=== PATIENT | female | born 1995 | race Caucasian/White ===

== ENCOUNTER 2016-11-29 20:56 | Emergency (ER) | payer MEDICAID ==
--- NOTE | 2016-11-29 21:08 | EDM.PDOC ---
ED HPI GENERAL MEDICAL PROBLEM - General Stated Complaint: BAD HEADACHE Time Seen by Provider: 11/29/16 21:08 Source of Information: Reports: Patient History Limitations: Reports: No Limitations - History of Present Illness INITIAL COMMENTS - FREE TEXT/NARRATIVE: 20 yo F who presented to the ER with severe throbbing temporal headache which she rates as 7/10 and associated with nausea, vomiting and photophobia but no fever. PARISH radiates down her neck but she denied any neck stiffness. Vomited prior to arrival but continues to feel nauseous. 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 - Infectious Disease History Infectious Disease History: Reports: Chicken Pox Social & Family History - Tobacco Use Smoking Status *Q: Never Smoker - Recreational Drug Use Recreational Drug Use: No ED ROS GENERAL - Review of Systems Review Of Systems: See Below Constitutional: Reports: Other (Positive for headache) HEENT: Reports: No Symptoms Respiratory: Reports: No Symptoms Cardiovascular: Reports: No Symptoms Endocrine: Reports: No Symptoms GI/Abdominal: Reports: No Symptoms Musculoskeletal: Reports: No Symptoms Skin: Reports: No Symptoms Neurological: Reports: No Symptoms Psychiatric: Reports: No Symptoms Hematologic/Lymphatic: Reports: No Symptoms Immunologic: Reports: No Symptoms ED EXAM, GENERAL - Physical Exam Exam: See Below Exam Limited By: No Limitations General Appearance: Alert, WD/WN, No Apparent Distress Ears: Normal External Exam, Normal Canal Nose: Normal Inspection Throat/Mouth: Normal Inspection, Normal Lips, Normal Oropharynx, Normal Voice Head: Atraumatic, Normocephalic Neck: Normal Inspection, Supple, Non-Tender Respiratory/Chest: No Respiratory Distress, Lungs Clear, Normal Breath Sounds Cardiovascular: Normal Peripheral Pulses, Regular Rate, Rhythm, No Edema GI/Abdominal: Normal Bowel Sounds, Soft, Non-Tender, No Organomegaly, No Distention (Female) Exam: Deferred Rectal (Female) Exam: Deferred Back Exam: Normal Inspection, Full Range of Motion Extremities: Normal Inspection, Normal Range of Motion Neurological: Alert, Oriented, CN II-XII Intact, Normal Cognition, Normal Reflexes Psychiatric: Normal Affect Skin Exam: Warm, Dry, Intact, Normal Color Course - Vital Signs Last Recorded V/S: Last Vital Signs Temp 36.0 C 11/29/16 21:11 Pulse 87 11/29/16 21:11 Resp 14 11/29/16 21:11 BP 140/65 11/29/16 21:11 Pulse Ox 100 11/29/16 21:11 - Orders/Labs/Meds Orders: Active Orders 24 hr Category Date Time Status Saline Lock Insert [OM.PC] Routine Oth 11/29/16 22:12 Ordered Meds: Medications Discontinued Medications Generic Name Dose Route Start Last Admin Trade Name Freq PRN Reason Stop Dose Admin Diphenhydramine HCl 25 mg 11/29/16 21:23 11/29/16 22:03 Benadryl IVPUSH 11/29/16 21:24 25 mg ONETIME ONE Administration Sodium Chloride 1,000 mls @ 1,000 mls/hr 11/29/16 21:18 11/29/16 21:52 Normal Saline IV 11/29/16 22:17 999 mls/hr .BOLUS ONE Administration Ketorolac Tromethamine 30 mg 11/29/16 21:22 11/29/16 22:00 Toradol IVPUSH 11/29/16 21:23 30 mg ONETIME ONE Administration Metoclopramide HCl 10 mg 11/29/16 21:21 11/29/16 21:58 Reglan IVPUSH 11/29/16 21:22 10 mg ONETIME ONE Administration Sodium Chloride 10 ml 11/29/16 22:12 11/29/16 22:13 Saline Flush FLUSH 10 ml ASDIRECTED PRN Administration Keep Vein Open Departure - Departure Time of Disposition: 22:50 Disposition: Home, Self-Care 01 Condition: Good Clinical Impression: Migraine - Discharge Information Instructions: Migraine Headache Referrals: PCP,None [Primary Care Provider] - Forms: ED Department Discharge Additional Instructions: Follow with PCP Ibuprofen for pain Return if symptoms worsen Call your Physician or Return to Emergency Department if: * Your condition worsens in any way. * You develop fever greater than 100.4. * You have vomitting that does not stop with medications. * You have pain that is not controlled with medications. - My Orders Last 24 Hours: My Active Orders 11/29/16 22:12 Saline Lock Insert [OM.PC] Routine - Assessment/Plan Last 24 Hours: My Active Orders 11/29/16 22:12 Saline Lock Insert [OM.PC] Routine
[2016-11-29] MEDS ORDERED: Sodium Chloride 0.9% 1,000 ML IV ONE (21:18)
[2016-11-29] MEDS ORDERED: Metoclopramide 10 MG/2 ML SDV IVPUSH ONE (21:21)
[2016-11-29 21:22] VITALS: BP 140/65
[2016-11-29] MEDS ORDERED: Ketorolac 30 MG/ML SDV IVPUSH ONE (21:22)
[2016-11-29] MEDS ORDERED: diphenhydrAMINE 50 MG/ML SDV IVPUSH ONE (21:23)
[2016-11-29] MEDS ORDERED: Sodium Chloride 0.9% 10 ML Syringe FLUSH PRN (22:12)
== END 2016-11-29 22:32 | disposition home or self-care (01) ==
LOC: FB.ED 20:56
DX: G43.909 Migraine, unspecified, not intractable, without status migrainosus (principal)
CPT/HCPCS: 96361; 96374; 96375; 99284; J1200; J1885; J2765; J7040; J7050

== ENCOUNTER 2019-10-23 22:45 | Observation (INO) | payer SELFPAY ==
--- NOTE | 2019-10-23 22:50 | EDM.PDOC ---
ED HPI GENERAL MEDICAL PROBLEM - General Stated Complaint: vomiting; abdominal pain; light headed Time Seen by Provider: 10/23/19 22:48 Source of Information: Reports: Patient History Limitations: Reports: No Limitations - History of Present Illness INITIAL COMMENTS - FREE TEXT/NARRATIVE: 23 yo F presenting with h/o N/V/D and abdominal pain that started today and has been getting worse. Sudden in onset. Abdominal pain is constant with no obvious aggravating or relieving factors. Vomited 3x at home -- non bilious, non bloody vomiting. Had associated diarrhea. No fever, chills. Endorsed feeling weak, dizzy and light headed. Denied any urinary symptoms. 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 Neurological History: Reports: Other (See Below) Other Neuro History: occ headaches - Infectious Disease History Infectious Disease History: Reports: Chicken Pox Social & Family History - Caffeine Use Caffeine Use: Reports: Coffee ED ROS GENERAL - Review of Systems Review Of Systems: See Below Constitutional: Reports: Weakness, Fatigue HEENT: Reports: No Symptoms Respiratory: Reports: No Symptoms Cardiovascular: Reports: No Symptoms Endocrine: Reports: No Symptoms GI/Abdominal: Reports: Abdominal Pain, Nausea, Vomiting : Reports: No Symptoms Musculoskeletal: Reports: No Symptoms Skin: Reports: No Symptoms Neurological: Reports: No Symptoms Psychiatric: Reports: No Symptoms Hematologic/Lymphatic: Reports: No Symptoms Immunologic: Reports: No Symptoms ED EXAM, GENERAL - Physical Exam Exam: See Below Exam Limited By: No Limitations General Appearance: Alert, WD/WN, No Apparent Distress Eye Exam: Bilateral Eye: EOMI, PERRL Ears: Normal External Exam, Normal Canal, Hearing Grossly Normal, Normal TMs Ear Exam: Bilateral Ear: Auricle Normal Nose: Normal Inspection, Normal Mucosa Throat/Mouth: Normal Inspection, Normal Lips, Normal Teeth, Normal Oropharynx Head: Atraumatic, Normocephalic Neck: Normal Inspection, Supple, Non-Tender Respiratory/Chest: No Respiratory Distress, Lungs Clear, Normal Breath Sounds Cardiovascular: Normal Peripheral Pulses, Regular Rate, Rhythm, No Edema, No JVD , No Murmur GI/Abdominal: Normal Bowel Sounds, Soft, Non-Tender, No Organomegaly, Tender Back Exam: Normal Inspection, Full Range of Motion Extremities: Normal Inspection, Normal Range of Motion, No Pedal Edema Course - Vital Signs Last Recorded V/S: Last Vital Signs Temp 36.6 C 10/23/19 22:55 Pulse 61 10/23/19 22:55 Resp 16 10/23/19 22:55 BP 129/73 10/23/19 22:55 Pulse Ox 100 10/23/19 22:55 - Orders/Labs/Meds Orders: Active Orders 24 hr Category Date Time Status Abdomen Pelvis w Cont [CT] Stat Exams 10/23/19 23:00 Taken Labs: Laboratory Tests 10/23/19 10/23/19 10/23/19 Range/Units 23:05 23:05 23:15 WBC 17.2 H (4.5-12.0) X10-3/uL RBC 4.44 (3.23-5.20) x10(6)uL Hgb 13.5 (11.5-15.5) g/dL Hct 40.3 (30.0-51.3) % MCV 90.6 (80-96) fL MCH 30.5 (27.7-33.6) pg MCHC 33.6 (32.2-35.4) g/dL RDW 12.2 (11.5-15.5) % Plt Count 314 (125-369) X10(3)uL MPV 7.6 (7.4-10.4) fL Add Manual Diff Yes Neutrophils % (Manual) 80 (46-82) % Band Neutrophils % 4 (0-6) % Lymphocytes % (Manual) 10 L (13-37) % Monocytes % (Manual) 5 (4-12) % Eosinophils % (Manual) 1 (0-5) % Sodium (135-145) mmol/L Potassium (3.5-5.3) mmol/L Chloride (100-110) mmol/L Carbon Dioxide (21-32) mmol/L BUN (7-18) mg/dL Creatinine (0.55-1.02) mg/dL Est Cr Clr Drug Dosing mL/min Estimated GFR (MDRD) (>60) BUN/Creatinine Ratio (9-20) Glucose (80-116) mg/dL Calcium (8.6-10.2) mg/dL Total Bilirubin (0.1-1.3) mg/dL AST (5-25) IU/L ALT (12-36) U/L Alkaline Phosphatase (56-112) IU/L Total Protein (6.0-8.0) g/dL Albumin (3.5-5.2) g/dL Globulin g/dL Albumin/Globulin Ratio Lipase (73-393) U/L Urine Color Yellow (YELLOW) Urine Appearance Slightly cloudy (CLEAR) Urine pH 6.0 (5.0-6.5) Ur Specific [place] 1.030 H (1.010-1.025) Urine Protein Negative (NEGATIVE) mg/dL Urine Glucose (UA) Normal (NORMAL) mg/dL Urine Ketones 15 H (NEGATIVE) mg/dL Urine Occult Blood Negative (NEGATIVE) Urine Nitrite Negative (NEGATIVE) Urine Bilirubin Negative (NEGATIVE) Urine Urobilinogen 1 H (NEGATIVE) mg/dL Ur Leukocyte Esterase Negative (NEGATIVE) Urine RBC 0-5 (0-5) Urine WBC 0-5 (0-5) Ur Squamous Epith Cells Few H (NS,R,O) Urine Bacteria Few H (NS) Urine Mucus Few H (NS) Urine HCG, Qual Negative (NEGATIVE) 10/23/19 10/23/19 Range/Units 23:15 23:15 WBC (4.5-12.0) X10-3/uL RBC (3.23-5.20) x10(6)uL Hgb (11.5-15.5) g/dL Hct (30.0-51.3) % MCV (80-96) fL MCH (27.7-33.6) pg MCHC (32.2-35.4) g/dL RDW (11.5-15.5) % Plt Count (125-369) X10(3)uL MPV (7.4-10.4) fL Add Manual Diff Neutrophils % (Manual) (46-82) % Band Neutrophils % (0-6) % Lymphocytes % (Manual) (13-37) % Monocytes % (Manual) (4-12) % Eosinophils % (Manual) (0-5) % Sodium 139 (135-145) mmol/L Potassium 3.2 L (3.5-5.3) mmol/L Chloride 102 (100-110) mmol/L Carbon Dioxide 23 (21-32) mmol/L BUN 13 (7-18) mg/dL Creatinine 0.7 (0.55-1.02) mg/dL Est Cr Clr Drug Dosing 101.63 mL/min Estimated GFR (MDRD) > 60 (>60) BUN/Creatinine Ratio 18.6 (9-20) Glucose 112 (80-116) mg/dL Calcium 8.9 (8.6-10.2) mg/dL Total Bilirubin 0.4 (0.1-1.3) mg/dL AST 17 (5-25) IU/L ALT 21 (12-36) U/L Alkaline Phosphatase 54 L (56-112) IU/L Total Protein 7.8 (6.0-8.0) g/dL Albumin 4.3 (3.5-5.2) g/dL Globulin 3.5 g/dL Albumin/Globulin Ratio 1.2 Lipase 71 L (73-393) U/L Urine Color (YELLOW) Urine Appearance (CLEAR) Urine pH (5.0-6.5) Ur Specific [place] (1.010-1.025) Urine Protein (NEGATIVE) mg/dL Urine Glucose (UA) (NORMAL) mg/dL Urine Ketones (NEGATIVE) mg/dL Urine Occult Blood (NEGATIVE) Urine Nitrite (NEGATIVE) Urine Bilirubin (NEGATIVE) Urine Urobilinogen (NEGATIVE) mg/dL Ur Leukocyte Esterase (NEGATIVE) Urine RBC (0-5) Urine WBC (0-5) Ur Squamous Epith Cells (NS,R,O) Urine Bacteria (NS) Urine Mucus (NS) Urine HCG, Qual (NEGATIVE) Meds: Medications Discontinued Medications Generic Name Dose Route Start Last Admin Trade Name Freq PRN Reason Stop Dose Admin Sodium Chloride 1,000 mls @ 500 mls/hr 10/23/19 23:01 10/23/19 23:16 Normal Saline IV 10/24/19 01:00 500 mls/hr .BOLUS ONE Administration Iopamidol 100 ml 10/24/19 00:04 10/24/19 00:17 Isovue-370 (76%) IV 10/24/19 00:05 100 ml . DIRECTED ONE Administration Morphine Sulfate 2 mg 10/23/19 23:03 Morphine IVPUSH 10/23/19 23:04 ONETIME ONE Ondansetron HCl 4 mg 10/23/19 23:02 10/23/19 23:16 Zofran IVPUSH 10/23/19 23:03 4 mg ONETIME ONE Administration Potassium Chloride 20 meq 10/24/19 01:11 Klor-Con M20 PO 10/24/19 01:12 ONETIME ONE Departure - Departure Time of Disposition: 01:28 Disposition: Refer to Observation Clinical Impression: Acute appendicitis, Appendicitis - Discharge Information Referrals: PCP,None [Primary Care Provider] - Sepsis Event Note - Focused Exam Vital Signs: Vital Signs Temp Pulse Resp BP Pulse Ox 10/23/19 22:55 36.6 C 61 16 129/73 100 Date Exam was Performed: 10/24/19 Time Exam was Performed: 01:29 - My Orders Last 24 Hours: My Active Orders 10/23/19 23:00 Abdomen Pelvis w Cont [CT] Stat - Assessment/Plan Last 24 Hours: My Active Orders 10/23/19 23:00 Abdomen Pelvis w Cont [CT] Stat
[2019-10-23] MEDS ORDERED: Sodium Chloride 0.9% 1,000 ML IV ONE (23:01)
[2019-10-23] MEDS ORDERED: Ondansetron 4 MG/2 ML SDV IVPUSH ONE (23:02)
[2019-10-23] MEDS ORDERED: Morphine 2 MG/ML Syringe IVPUSH ONE (23:03)
[2019-10-24] MEDS ORDERED: Iopamidol 755 Mg/ML 100 ML Bottle IV ONE (00:04)
[2019-10-24] MEDS ORDERED: Potassium Chloride 20 MEQ Tab.ER PO ONE (01:11)
[2019-10-24] MEDS ORDERED: Morphine 2 MG/ML Syringe IVPUSH PRN (01:47)
[2019-10-24] MEDS ORDERED: Ketorolac 30 MG/ML SDV IVPUSH ONE ×2 (02:00→16:02)
[2019-10-24] MEDS ORDERED: Lactated Ringers 1,000 ML IV SCH ×2 (02:00→09:00)
[2019-10-24] MEDS ORDERED: Ketorolac 30 MG/ML SDV ONE (02:01)
--- NOTE | 2019-10-24 02:04 | PCM.HP.2 ---
H&P History of Present Illness - General Date of Service: 10/24/19 Admit Problem/Dx: Admission Diagnosis/Problem Admission Diagnosis/Problem Appendicitis Source of Information: Patient, RN Notes Reviewed History Limitations: Reports: No Limitations - History of Present Illness Initial Comments - Free Text/Narative: Presented to the ER with N/V/D and abdominal pain x [address] abdomen done in the ER consistent with acute appendicitis. Admitted for observation. Rates pain as 5/10. Received IVF, Antiemetics in the ER. Surgery planned for 7 AM. 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 Neurological History: Reports: Other (See Below) Other Neuro History: occ headaches - Infectious Disease History Infectious Disease History: Reports: Chicken Pox Social & Family History - Family History Family Medical History: Noncontributory - Tobacco Use Smoking Status *Q: Never Smoker - Caffeine Use Caffeine Use: Reports: Coffee - Recreational Drug Use Recreational Drug Use: No H&P Review of Systems - Review of Systems: Review Of Systems: See Below General: Reports: No Symptoms HEENT: Reports: No Symptoms Pulmonary: Reports: No Symptoms Cardiovascular: Reports: No Symptoms Gastrointestinal: Reports: Abdominal Pain, Nausea, Vomiting Genitourinary: Reports: No Symptoms Musculoskeletal: Reports: No Symptoms Skin: Reports: No Symptoms Psychiatric: Reports: No Symptoms Neurological: Reports: No Symptoms Hematologic/Lymphatic: Reports: No Symptoms Immunologic: Reports: No Symptoms Exam - Exam Exam: See Below - Vital Signs Vital Signs: Last Vital Signs Temp 36.6 C 10/23/19 22:55 Pulse 61 10/23/19 22:55 Resp 16 10/23/19 22:55 BP 129/73 10/23/19 22:55 Pulse Ox 100 10/23/19 22:55 Weight: 63.503 kg - Exam General: Alert, Oriented HEENT: PERRLA, Conjunctiva Clear, Posterior Pharynx Clear Neck: Supple, Trachea Midline Lungs: Clear to Auscultation, Normal Respiratory Effort Cardiovascular: Regular Rate, Regular Rhythm GI/Abdominal Exam: Normal Bowel Sounds, Soft, No Distention, Tender Back Exam: Normal Inspection, Full Range of Motion Extremities: Normal Inspection, Normal Range of Motion, Non-Tender Skin: Warm Neurological: Cranial Nerves Intact, Reflexes Equal Bilateral Neuro Extensive - Mental Status: Alert, Oriented x3, Normal Mood/Affect Neuro Extensive - Motor, Sensory, Reflexes: CN II-XII Intact, Normal Gait, Normal Reflexes Psychiatric: Alert, Normal Affect, Normal Mood - Patient Data Lab Results Last 24 hrs: Laboratory Results - last 24 hr 10/23/19 10/23/19 10/23/19 Range/Units 23:05 23:05 23:15 WBC 17.2 H (4.5-12.0) X10-3/uL RBC 4.44 (3.23-5.20) x10(6)uL Hgb 13.5 (11.5-15.5) g/dL Hct 40.3 (30.0-51.3) % MCV 90.6 (80-96) fL MCH 30.5 (27.7-33.6) pg MCHC 33.6 (32.2-35.4) g/dL RDW 12.2 (11.5-15.5) % Plt Count 314 (125-369) X10(3)uL MPV 7.6 (7.4-10.4) fL Add Manual Diff Yes Neutrophils % (Manual) 80 (46-82) % Band Neutrophils % 4 (0-6) % Lymphocytes % (Manual) 10 L (13-37) % Monocytes % (Manual) 5 (4-12) % Eosinophils % (Manual) 1 (0-5) % Sodium (135-145) mmol/L Potassium (3.5-5.3) mmol/L Chloride (100-110) mmol/L Carbon Dioxide (21-32) mmol/L BUN (7-18) mg/dL Creatinine (0.55-1.02) mg/dL Est Cr Clr Drug Dosing mL/min Estimated GFR (MDRD) (>60) BUN/Creatinine Ratio (9-20) Glucose (80-116) mg/dL Calcium (8.6-10.2) mg/dL Total Bilirubin (0.1-1.3) mg/dL AST (5-25) IU/L ALT (12-36) U/L Alkaline Phosphatase (56-112) IU/L Total Protein (6.0-8.0) g/dL Albumin (3.5-5.2) g/dL Globulin g/dL Albumin/Globulin Ratio Lipase (73-393) U/L Urine Color Yellow (YELLOW) Urine Appearance Slightly cloudy (CLEAR) Urine pH 6.0 (5.0-6.5) Ur Specific [place] 1.030 H (1.010-1.025) Urine Protein Negative (NEGATIVE) mg/dL Urine Glucose (UA) Normal (NORMAL) mg/dL Urine Ketones 15 H (NEGATIVE) mg/dL Urine Occult Blood Negative (NEGATIVE) Urine Nitrite Negative (NEGATIVE) Urine Bilirubin Negative (NEGATIVE) Urine Urobilinogen 1 H (NEGATIVE) mg/dL Ur Leukocyte Esterase Negative (NEGATIVE) Urine RBC 0-5 (0-5) Urine WBC 0-5 (0-5) Ur Squamous Epith Cells Few H (NS,R,O) Urine Bacteria Few H (NS) Urine Mucus Few H (NS) Urine HCG, Qual Negative (NEGATIVE) 10/23/19 10/23/19 Range/Units 23:15 23:15 WBC (4.5-12.0) X10-3/uL RBC (3.23-5.20) x10(6)uL Hgb (11.5-15.5) g/dL Hct (30.0-51.3) % MCV (80-96) fL MCH (27.7-33.6) pg MCHC (32.2-35.4) g/dL RDW (11.5-15.5) % Plt Count (125-369) X10(3)uL MPV (7.4-10.4) fL Add Manual Diff Neutrophils % (Manual) (46-82) % Band Neutrophils % (0-6) % Lymphocytes % (Manual) (13-37) % Monocytes % (Manual) (4-12) % Eosinophils % (Manual) (0-5) % Sodium 139 (135-145) mmol/L Potassium 3.2 L (3.5-5.3) mmol/L Chloride 102 (100-110) mmol/L Carbon Dioxide 23 (21-32) mmol/L BUN 13 (7-18) mg/dL Creatinine 0.7 (0.55-1.02) mg/dL Est Cr Clr Drug Dosing 101.63 mL/min Estimated GFR (MDRD) > 60 (>60) BUN/Creatinine Ratio 18.6 (9-20) Glucose 112 (80-116) mg/dL Calcium 8.9 (8.6-10.2) mg/dL Total Bilirubin 0.4 (0.1-1.3) mg/dL AST 17 (5-25) IU/L ALT 21 (12-36) U/L Alkaline Phosphatase 54 L (56-112) IU/L Total Protein 7.8 (6.0-8.0) g/dL Albumin 4.3 (3.5-5.2) g/dL Globulin 3.5 g/dL Albumin/Globulin Ratio 1.2 Lipase 71 L (73-393) U/L Urine Color (YELLOW) Urine Appearance (CLEAR) Urine pH (5.0-6.5) Ur Specific [place] (1.010-1.025) Urine Protein (NEGATIVE) mg/dL Urine Glucose (UA) (NORMAL) mg/dL Urine Ketones (NEGATIVE) mg/dL Urine Occult Blood (NEGATIVE) Urine Nitrite (NEGATIVE) Urine Bilirubin (NEGATIVE) Urine Urobilinogen (NEGATIVE) mg/dL Ur Leukocyte Esterase (NEGATIVE) Urine RBC (0-5) Urine WBC (0-5) Ur Squamous Epith Cells (NS,R,O) Urine Bacteria (NS) Urine Mucus (NS) Urine HCG, Qual (NEGATIVE) Result Diagrams: 10/23/19 23:15 10/23/19 23:15 Sepsis Event Note - Evaluation Sepsis Screening Result: No Definite Risk - Focused Exam Vital Signs: Vital Signs Temp Pulse Resp BP Pulse Ox 10/23/19 22:55 36.6 C 61 16 129/73 100 Date Exam was Performed: 10/24/19 Time Exam was Performed: 01:58 Problem List Initiated/Reviewed/Updated: Yes Orders Last 24hrs: Active Orders 24 hr Category Date Time Status Admission Status [Patient Status] [ADT] Routine ADT 10/24/19 01:15 Active Oxygen Therapy [RC] PRN Care 10/24/19 01:55 Ordered VTE/DVT Education [RC] Per Unit Routine Care 10/24/19 01:55 Ordered Vital Signs [RC] Q4H Care 10/24/19 01:55 Ordered Nothing per Oral Now Diet [DIET] Diet 10/24/19 Breakfast Active Abdomen Pelvis w Cont [CT] Stat Exams 10/23/19 23:00 Taken Ketorolac [Toradol] Med 10/24/19 02:00 Once 30 mg IVPUSH ONETIME ONE Lactated Ringers [Ringers, Lactated] 1,000 ml Med 10/24/19 02:00 Ordered IV ASDIRECTED Morphine Med 10/24/19 01:47 Ordered 1 mg IVPUSH Q1H PRN cefOXitin [Mefoxin] Med 10/24/19 03:00 Once 2 gm IVPUSH ONETIME ONE Resuscitation Status Routine Resus Stat 10/24/19 01:55 Ordered Medication Orders Cefoxitin Sodium (Mefoxin) 2 gm IVPUSH ONETIME ONE Stop: 10/24/19 03:01 Lactated Ringer's (Ringers, Lactated) 1,000 mls @ 125 mls/hr IV ASDIRECTED [place] Ketorolac Tromethamine (Toradol) 30 mg IVPUSH ONETIME ONE Stop: 10/24/19 02:01 Morphine Sulfate (Morphine) 1 mg IVPUSH Q1H PRN PRN Reason: Abdominal Pain Assessment >>>Acute Appendicitis Plan >>>NPO >>>IVF >>>Antibiotics per Dr. Hankins >>>Antiemetics, analgesia >>>Surgery 7am - Mortality Measure Prognosis:: Good
[2019-10-24] MEDS ORDERED: cefOXitin 2 GM Vial IVPUSH ONE (03:00)
--- NOTE | 2019-10-24 07:19 | PCM.HP.2 ---
H&P History of Present Illness - General Date of Service: 10/24/19 Admit Problem/Dx: Admission Diagnosis/Problem Admission Diagnosis/Problem Appendicitis Source of Information: Patient History Limitations: Reports: No Limitations - History of Present Illness Symptom Onset Date: 10/23/19 Location: Reports: Abdomen (RLQ) Quality: Reports: Ache, Sharp Severity: Moderate Improves with: Reports: Medication Associated Symptoms: Reports: Nausea/Vomiting Abdomen Pain Score (Numeric/FACES): 6 - Related Data Allergies/Adverse Reactions: Allergies Allergy/AdvReac Type Severity Reaction Status Date / Time No Known Allergies Allergy Verified 10/23/19 22:55 Home Medications: Home Meds NK [No Known Home Meds] 11/29/16 [History] Past Medical History - Past Health History Medical/Surgical History: Denies 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 Neurological History: Reports: Other (See Below) Other Neuro History: occ headaches - Infectious Disease History Infectious Disease History: Reports: Chicken Pox Social & Family History - Family History Family Medical History: Noncontributory - Tobacco Use Smoking Status *Q: Never Smoker - Caffeine Use Caffeine Use: Reports: Coffee - Recreational Drug Use Recreational Drug Use: No H&P Review of Systems - Review of Systems: Review Of Systems: Comprehensive ROS is negative, except as noted in HPI. HEENT: Reports: No Symptoms Pulmonary: Reports: No Symptoms Cardiovascular: Reports: No Symptoms Genitourinary: Reports: No Symptoms Exam - Exam Exam: See Below - Vital Signs Vital Signs: Last Vital Signs Temp 97.4 F 10/24/19 01:45 Pulse 60 10/24/19 01:45 Resp 16 10/24/19 01:45 BP 130/79 10/24/19 01:45 Pulse Ox 99 10/24/19 01:45 Weight: 63.503 kg - Exam General: Alert, Oriented Neck: Supple, Trachea Midline Lungs: Clear to Auscultation, Normal Respiratory Effort Cardiovascular: Regular Rate, Regular Rhythm GI/Abdominal Exam: Soft, No Distention, Tender (in RLQ). No: Hernia, Mass - Patient Data Lab Results Last 24 hrs: Laboratory Results - last 24 hr 10/23/19 10/23/19 10/23/19 Range/Units 23:05 23:05 23:15 WBC 17.2 H (4.5-12.0) X10-3/uL RBC 4.44 (3.23-5.20) x10(6)uL Hgb 13.5 (11.5-15.5) g/dL Hct 40.3 (30.0-51.3) % MCV 90.6 (80-96) fL MCH 30.5 (27.7-33.6) pg MCHC 33.6 (32.2-35.4) g/dL RDW 12.2 (11.5-15.5) % Plt Count 314 (125-369) X10(3)uL MPV 7.6 (7.4-10.4) fL Add Manual Diff Yes Neutrophils % (Manual) 80 (46-82) % Band Neutrophils % 4 (0-6) % Lymphocytes % (Manual) 10 L (13-37) % Monocytes % (Manual) 5 (4-12) % Eosinophils % (Manual) 1 (0-5) % Sodium (135-145) mmol/L Potassium (3.5-5.3) mmol/L Chloride (100-110) mmol/L Carbon Dioxide (21-32) mmol/L BUN (7-18) mg/dL Creatinine (0.55-1.02) mg/dL Est Cr Clr Drug Dosing mL/min Estimated GFR (MDRD) (>60) BUN/Creatinine Ratio (9-20) Glucose (80-116) mg/dL Calcium (8.6-10.2) mg/dL Total Bilirubin (0.1-1.3) mg/dL AST (5-25) IU/L ALT (12-36) U/L Alkaline Phosphatase (56-112) IU/L Total Protein (6.0-8.0) g/dL Albumin (3.5-5.2) g/dL Globulin g/dL Albumin/Globulin Ratio Lipase (73-393) U/L Urine Color Yellow (YELLOW) Urine Appearance Slightly cloudy (CLEAR) Urine pH 6.0 (5.0-6.5) Ur Specific Sasser 1.030 H (1.010-1.025) Urine Protein Negative (NEGATIVE) mg/dL Urine Glucose (UA) Normal (NORMAL) mg/dL Urine Ketones 15 H (NEGATIVE) mg/dL Urine Occult Blood Negative (NEGATIVE) Urine Nitrite Negative (NEGATIVE) Urine Bilirubin Negative (NEGATIVE) Urine Urobilinogen 1 H (NEGATIVE) mg/dL Ur Leukocyte Esterase Negative (NEGATIVE) Urine RBC 0-5 (0-5) Urine WBC 0-5 (0-5) Ur Squamous Epith Cells Few H (NS,R,O) Urine Bacteria Few H (NS) Urine Mucus Few H (NS) Urine HCG, Qual Negative (NEGATIVE) 10/23/19 10/23/19 Range/Units 23:15 23:15 WBC (4.5-12.0) X10-3/uL RBC (3.23-5.20) x10(6)uL Hgb (11.5-15.5) g/dL Hct (30.0-51.3) % MCV (80-96) fL MCH (27.7-33.6) pg MCHC (32.2-35.4) g/dL RDW (11.5-15.5) % Plt Count (125-369) X10(3)uL MPV (7.4-10.4) fL Add Manual Diff Neutrophils % (Manual) (46-82) % Band Neutrophils % (0-6) % Lymphocytes % (Manual) (13-37) % Monocytes % (Manual) (4-12) % Eosinophils % (Manual) (0-5) % Sodium 139 (135-145) mmol/L Potassium 3.2 L (3.5-5.3) mmol/L Chloride 102 (100-110) mmol/L Carbon Dioxide 23 (21-32) mmol/L BUN 13 (7-18) mg/dL Creatinine 0.7 (0.55-1.02) mg/dL Est Cr Clr Drug Dosing 101.63 mL/min Estimated GFR (MDRD) > 60 (>60) BUN/Creatinine Ratio 18.6 (9-20) Glucose 112 (80-116) mg/dL Calcium 8.9 (8.6-10.2) mg/dL Total Bilirubin 0.4 (0.1-1.3) mg/dL AST 17 (5-25) IU/L ALT 21 (12-36) U/L Alkaline Phosphatase 54 L (56-112) IU/L Total Protein 7.8 (6.0-8.0) g/dL Albumin 4.3 (3.5-5.2) g/dL Globulin 3.5 g/dL Albumin/Globulin Ratio 1.2 Lipase 71 L (73-393) U/L Urine Color (YELLOW) Urine Appearance (CLEAR) Urine pH (5.0-6.5) Ur Specific Sasser (1.010-1.025) Urine Protein (NEGATIVE) mg/dL Urine Glucose (UA) (NORMAL) mg/dL Urine Ketones (NEGATIVE) mg/dL Urine Occult Blood (NEGATIVE) Urine Nitrite (NEGATIVE) Urine Bilirubin (NEGATIVE) Urine Urobilinogen (NEGATIVE) mg/dL Ur Leukocyte Esterase (NEGATIVE) Urine RBC (0-5) Urine WBC (0-5) Ur Squamous Epith Cells (NS,R,O) Urine Bacteria (NS) Urine Mucus (NS) Urine HCG, Qual (NEGATIVE) Result Diagrams: 10/23/19 23:15 10/23/19 23:15 Imaging Impressions Last 24 hrs: CT scan shows acute appendicitis Sepsis Event Note - Evaluation Sepsis Screening Result: No Definite Risk - Focused Exam Vital Signs: Vital Signs Temp Pulse Pulse Resp BP Pulse Ox 10/24/19 01:45 97.4 F 60 16 130/79 99 10/23/19 22:55 97.8 F 61 16 129/73 100 Date Exam was Performed: 10/24/19 Time Exam was Performed: 07:13 Problem List Initiated/Reviewed/Updated: Yes Orders Last 24hrs: Active Orders 24 hr Category Date Time Status Admission Status [Patient Status] [ADT] Routine ADT 10/24/19 01:15 Active Oxygen Therapy [RC] .PRN Care 10/24/19 01:55 Active Vital Signs [RC] 00,04,08,12,16,20 Care 10/24/19 01:55 Active Nothing per Oral Now Diet [DIET] Diet 10/24/19 Breakfast Active Abdomen Pelvis w Cont [CT] Stat Exams 10/23/19 23:00 Taken CORONAVIRUS COVID-19 RODRIGO [MOLEC] Stat Lab 10/24/19 06:34 Received Lactated Ringers [Ringers, Lactated] 1,000 ml Med 10/24/19 02:00 Active IV ASDIRECTED Morphine Med 10/24/19 01:47 Active 1 mg IVPUSH Q1H PRN Resuscitation Status Routine Resus Stat 10/24/19 01:55 Ordered Medication Orders Lactated Ringer's (Ringers, Lactated) 1,000 mls @ 125 mls/hr IV ASDIRECTED HERNÁN Last Admin: 10/24/19 01:40 Dose: 125 mls/hr Morphine Sulfate (Morphine) 1 mg IVPUSH Q1H PRN PRN Reason: Abdominal Pain Last Admin: 10/24/19 02:43 Dose: 1 mg Assessment/Plan Comment:: Acute Appendictis Will proceed with lap appy; risks and complications reviewed., Consent obtained - Mortality Measure Prognosis:: Good
[2019-10-24] MEDS ORDERED: cefOXitin 1 GM Vial IVPUSH ONE (07:54)
[2019-10-24] MEDS ORDERED: Lactated Ringers 1,000 ML IV ONE (07:54)
--- NOTE | 2019-10-24 08:50 | PCM.OPNOTE ---
- General Post-Op/Procedure Note Date of Surgery/Procedure: 10/24/19 Operative Procedure(s): Lap Appy Findings: Acute Appendicitis Pre Op Diagnosis: Acute Appendicitis Post-Op Diagnosis: Same Anesthesia Technique: General ET Tube Primary Surgeon: Shyam Hankins Pathology: Appendix EBL in mLs: 5 Complications: None Condition: Good Free Text/Narrative:: Intake & Output 10/23/19 10/24/19 10/24/19 22:59 06:59 14:59 Intake Total 690 Output Total 0 Balance 690
[2019-10-24] MEDS ORDERED: Acetaminophen/HYDROcodone 325-5 MG Tab PO PRN (08:52)
--- NOTE | 2019-10-24 15:04 | OR ---
DATE OF OPERATION: 10/24/2019 SURGEON: Shyam Hankins MD PREOPERATIVE DIAGNOSIS: Acute appendicitis. POSTOPERATIVE DIAGNOSIS: Acute appendicitis. PROCEDURE: Laparoscopic appendectomy. ANESTHESIA: General. DESCRIPTION OF PROCEDURE: The patient was brought to the operating room, where general endotracheal anesthesia was administered. A time-out was performed. The abdomen was prepped with ChloraPrep and draped sterilely. An infraumbilical incision was made and extended into the peritoneal cavity without difficulty. The Dulce cannulator was introduced and pneumoperitoneum obtained. Two 5 mm ports were placed in the suprapubic position and detention between the umbilicus and pubis. The patient was rotated to the left and placed in Trendelenburg position. There was some serous fluid in the right lower quadrant that was suctioned. Omentum was taken off an acutely inflamed appendix. There was no perforation present. Almost the entire appendix was hard and inflamed, except the proximal 1 to 2 cm. A window was made in the mesoappendix at the base of the appendix and transected with an Endo-JOSIAH 3.5 mm stapler. The mesoappendix was then taken down with 2 loads of the Endo-JOSIAH 2.5 mm stapler. The appendix was brought out through the umbilical incision. Right lower quadrant was inspected and irrigated. The first staple line on the mesoappendix did have some oozing, so I did place 2 hemoclips here that resulted in good hemostasis. The ports were removed under direct vision and remained hemostatic. Umbilical fascia was closed with [id number] 0 Vicryl. Skin was closed with 4-0 Vicryl subcuticular sutures. Benzoin and Steri-Strips were placed and Band-Aids applied. The patient tolerated the procedure well. Estimated blood loss 5 mL. She returned to Postanesthesia in stable condition. /[id number] LOREE/TATY
[2019-10-24] MEDS ORDERED: Succinylcholine 200 MG/10 ML MDV IV ONE (16:02)
[2019-10-24] MEDS ORDERED: Ondansetron 4 MG/2 ML SDV IVPUSH ONE (16:02)
[2019-10-24] MEDS ORDERED: Glycopyrrolate 0.2 MG/ML 5 ML MDV IV ONE (16:02)
[2019-10-24] MEDS ORDERED: Lidocaine 2% 5 ML SDV INJECT ONE (16:02)
[2019-10-24] MEDS ORDERED: Rocuronium 100 MG/10 ML MDV IV ONE (16:02)
[2019-10-24] MEDS ORDERED: Dexamethasone 4 MG/ML 5 ML MDV IVPUSH ONE (16:02)
[2019-10-24] MEDS ORDERED: Neostigmine Methylsulfate 10 MG/10 ML MDV IVPUSH ONE (16:02)
[2019-10-24] MEDS ORDERED: fentaNYL 100 MCG/2 ML SDV IV ONE (16:02)
[2019-10-24] MEDS ORDERED: Propofol 200 MG/20 ML SDV IV ONE (16:02)
[2019-10-24] MEDS ORDERED: Midazolam 1 MG/ML 2 ML SDV IV ONE (16:02)
[2019-10-24 19:05] VITALS: BP 123/72; PULSE 87
== END 2019-10-24 16:03 | disposition home or self-care (01) ==
LOC: FB.ED 22:45 → FB.MS 10-24 01:44
PROVIDERS: ADMIT Surgery; ATTEND Surgery
DX: K35.80 Unspecified acute appendicitis (principal); Z87.19 Personal history of other diseases of the digestive system
CPT/HCPCS: 36415; 44970; 74177; 80053; 81001; 81025; 83690; 85025; 87635; 88304; 94150; 96361; 96374; 96375; 99285; A9270; G0378; J0330; J0694; J1100; J1885; J2001; J2250; J2270; J2405; J2704; J2710; J3010; J3490; J7030; J7120; Q9967; 00840-QZ; U0002